=== PATIENT | female | born 1990 | race Caucasian/White ===

== ENCOUNTER → 2017-09-03 09:23 | Outpatient (CLI) | payer MEDICARE ==
[2013-11-25 09:19] VITALS: BMI 31.9
[~2017-09-03 09:23] MED LIST: CELEXA20 MG PO; FOLIC ACID1 MG PO; KEPPRA1000 MG PO; MOTRIN800 MG PO; PERCOCET 10/3251 TA1 PO; PRENATAL COMPLE1 TAB PO; TOPROL XL25 MG PO
== END | disposition home or self-care (01) ==
LOC: D.MRI 09:23
DX: M25.562 Pain in left knee (principal)

== ENCOUNTER 2019-02-12 19:47 | Emergency (ER) | payer MEDICARE ==
[~2019-02-12] VITALS: Ht 160 cm; Wt 71.8 kg
[2019-02-12 19:56] VITALS: Ht 160 cm; Wt 71.8 kg
[2019-02-12] MEDS ORDERED: TOPAMAX50 MG PO (19:57)
[2019-02-12] MEDS ORDERED: TORADOL10 MG PO (21:37)
[2019-02-12 21:56] VITALS: BP 124/80
== END 2019-02-12 21:56 | disposition home or self-care (01) ==
LOC: D.ER 19:47
DX: S93.602A Unspecified sprain of left foot, initial encounter (principal); S80.01XA Contusion of right knee, initial encounter; S93.402A Sprain of unspecified ligament of left ankle, initial encounter; W19.XXXA Unspecified fall, initial encounter; Y92.096 Garden or yard of other non-institutional residence as the place of occurrence of the external cause; F32.9 Major depressive disorder, single episode, unspecified; I49.9 Cardiac arrhythmia, unspecified

== ENCOUNTER → 2019-11-20 10:23 | Outpatient (CLI) | payer MEDICARE, MEDICAID ==
[2019-02-12 19:56] VITALS: BMI 28.0
[~2019-11-20 10:23] MED LIST changes: +TOPAMAX50 MG PO; +TORADOL10 MG PO
== END | disposition home or self-care (01) ==
LOC: D.CN 10:23
DX: R56.9 Unspecified convulsions (principal)